=== PATIENT | male | born 1940 | race Caucasian/White ===

== ENCOUNTER 2017-02-03 06:07 | Inpatient (IN) | payer MEDICARE, OTHER ==
[~2017-02-03 06:07] MED LIST: ALLEGRA180 MG PO; ALTACE10 M4 PO; AMLODIPINE BESYLATE; CALCIUM 600 +1 EAC2 PO; CALCIUM OYSTER500 MG PO; CALCIUM600 MG; CALCIUM600 MG PO; CARBAMAZEPINE200 MG PO; COLACE100 MG PO; Calcium PO; FELDENE10 MG PO; FELDENE20 MG PO; FENOFIBRATE PO; FENOFIBRATE160 MG PO; FENTANYL1 EAC5 TOP; FENTANYL1 PATCH .; FENTANYL1 PATCH TOP; FEXOFENADINE H180 MG PO; FISH OIL 1,2001 EAC5 PO; FLOMAX0.4 M1 PO; IRON PO; IRON1 TA1; IRON325 MG PO; LEVITRA20 MG PO; LOVENOX40 MG/0.4 SQ; MELOXICAM; MIRALAX17 GM PO; NICODERM14 MG/PAT1 TD; NORCO 5/325 TAB1 TAB PO; NORVASC5 MG PO; OXYCONTIN; OXYGEN; PERCOCET 5MG/AP1 TAB PO; PIROXICAM20 MG; SENOKOT-S TABLE1 TAB PO; TEGRETOL200 MG PO; TESTOSTERO200 MG/1 M IM; TESTOSTERON100 MG/ML IM; TOVIAZ4 MG PO; TRIGLIDE160 MG PO; TYLENOL325 MG PO; VITAMIN C PO; VITAMIN D 22000 UNIT PO; VITAMIN D1000 UNI1 PO; Vitamin D3 PO; XARELTO10 MG PO; ZETIA10 MG; ZETIA10 MG PO; ZYRTEC10 M3 PO
[2017-02-03 06:37] LABS: ABG CO2 ARTERIAL 29 mmol/L (21-27); ARTERIAL BLD GAS O2 SATURATION 84 % (95-98); ARTERIAL BLOOD GAS PCO2 42 mmHg (32-45); ARTERIAL PO2 51 mmHg (70-100); BICARBONATE 28 mmol/L (21-28); BLOOD GAS BASE EXCESS 4 mM/L (-/+3); PH 7.44 Units (7.35-7.45)
[2017-02-03] MEDS ORDERED: VITAMIN B-121000 MC1 PO (06:56)
[2017-02-03 07:03] LABS: BASO % 0.1 % (0-2); EOS % 0.4 % (0-7); HCT-HEMATOCRIT 38.7 % (36.0-53.5); HGB-HEMOGLOBIN 12.4 gm/dl (13.5-17.0); IMMATURE GRANULOCYTES ABSOLUTE 0.01 tho/cmm (0-0.03); IMMATURE GRANULOCYTES PERCENT 0.1 % (0-0.3); LYMPH % 6.3 % (20-45); LYMPH ABSOLUTE COUNT 0.5 tho/cmm (0.8-4.5); MCH (MEAN CORPUSCULAR HGB) 30.5 pg (28.0-32.0); MCV (MEAN CELL VOLUME) 95.1 fl (82.0-96.0); MEAN PLATELET VOLUME 10.2 cmc (9.4-12.4); MONO % 11.2 % (0-12); MONOCYTE ABSOLUTE COUNT 0.9 tho/cmm (0.0-1.2); NEUTROPHIL ABSOLUTE COUNT 6.9 tho/cmm (1.6-8.0); NEUTROPHIL-AUTOMATED 6.9 tho/cmm (1.6-8.0); NEUTROPHILS % 81.9 % (40-80); PLATELET COUNT 215 tho/cmm (150-450); RED BLOOD COUNT 4.07 mil/cmm (4.40-5.70); RED CELL DISTRIBUTION WIDTH 14.4 % (12.4-16.4); WHITE BLOOD COUNT 8.4 tho/cmm (4.0-10.0)
[2017-02-03 07:18] LABS: ALB/GLOB RATIO 0.7 (0.8-2.0); ALBUMIN 3.4 g/dl (3.5-5.0); ALKALINE PHOSPHATASE 31 U/L (33-138); ALT/SGPT 48 U/L (12-78); ANION GAP 14 mmol/L (0-20); AST/SGOT 69 U/L (10-40); BILIRUBIN,TOTAL 0.8 mg/dl (0.0-1.5); BLOOD UREA NITROGEN 34 mg/dl (6-24); CALCIUM 9.5 mg/dl (8.5-10.5); CARBON DIOXIDE-VENOUS 30 mmol/L (22-32); CHLORIDE 102 mmol/l (96-110); CREATININE 2.25 mg/dl (0.60-1.30); GLUCOSE 100 mg/dL (70-110); MAGNESIUM 1.8 mg/dl (1.8-2.6); POTASSIUM 4.5 mmol/L (3.7-5.1); SODIUM 141 mmol/L (135-145); eGFR VALUE FOR BLACK 32 mL/Min
[2017-02-03] MEDS ORDERED: METROCREAM TOP (07:26)
[2017-02-03] MEDS ORDERED: VITAMIN B3 PO (07:27)
[2017-02-03] MEDS ORDERED: ASPIRIN81 M1 PO (07:28)
[2017-02-03] MEDS ORDERED: CLARITIN10 M6 PO (07:28)
[2017-02-03] MEDS ORDERED: MIRALAX17 G2 PO (07:29)
[2017-02-03] MEDS ORDERED: PROBIOTIC1 EA10 PO (07:49)
[2017-02-03 08:05] LABS: TSH-THYROID STIMULATING HORM. 3.14 uIU/ml (0.40-3.80)
[2017-02-03 08:35] LABS: CREATINE PHOSPHOKINASE (CPK) 649 U/L (35-232)
[2017-02-03 08:36] LABS: CKMB 13.5 ng/ml (<3.6)
[2017-02-03 11:34] LABS: CHOLESTEROL 134 mg/dl (120-200); HDL CHOLESTEROL 39 mg/dl (40-60); LDL CHOLESTEROL 84 mg/dl (0-99); TRIGLYCERIDES 59 mg/dl (<149); VLDL 12 mg/dl (0-30)
[2017-02-04 05:43] LABS: ANION GAP 11 mmol/L (0-20); CALCIUM 8.8 mg/dl (8.5-10.5); CARBON DIOXIDE-VENOUS 34 mmol/L (22-32); CHLORIDE 100 mmol/l (96-110); GLUCOSE 129 mg/dL (70-110); POTASSIUM 4.4 mmol/L (3.7-5.1); SODIUM 141 mmol/L (135-145); eGFR VALUE FOR BLACK 21 mL/Min
[2017-02-04 06:03] LABS: BLOOD UREA NITROGEN 55 mg/dl (6-24); CREATININE 3.18 mg/dl (0.60-1.30)
[2017-02-04 12:28] LABS: URINE BILIRUBIN NEGATIVE (NEG); URINE BLOOD NEGATIVE (NEG); URINE GLUCOSE (UA) NEGATIVE (NEG); URINE KETONE NEGATIVE (NEG); URINE LEUKOCYTE ESTERASE NEGATIVE (NEG); URINE NITRITE NEGATIVE (NEG); URINE PROTEIN MODERATE (NEG)
[2017-02-04 12:29] LABS: URINE APPEARANCE CLEAR; URINE COLOR COLORLESS
[2017-02-04 12:34] LABS: URINE EPITHELIAL CELLS 0 /[HPF] (0-10); URINE RBC 0 /[HPF] (0-5); URINE WBC 0 /[HPF] (0-5)
[2017-02-04 13:12] LABS: URINE TOTAL PROTEIN-RANDOM 28.9 mg/dl (<11.8)
[2017-02-04 13:29] LABS: URINE PRT/CR RATIO 1.25 Ratio (0.0-0.20)
[2017-02-05 05:54] LABS: EOS % 0.4 % (0-7); HCT-HEMATOCRIT 36.2 % (36.0-53.5); HGB-HEMOGLOBIN 11.6 gm/dl (13.5-17.0); IMMATURE GRANULOCYTES ABSOLUTE 0.01 tho/cmm (0-0.03); IMMATURE GRANULOCYTES PERCENT 0.1 % (0-0.3); LYMPH % 4.7 % (20-45); LYMPH ABSOLUTE COUNT 0.4 tho/cmm (0.8-4.5); MCH (MEAN CORPUSCULAR HGB) 30.4 pg (28.0-32.0); MEAN PLATELET VOLUME 10.4 cmc (9.4-12.4); MONO % 10.5 % (0-12); MONOCYTE ABSOLUTE COUNT 0.8 tho/cmm (0.0-1.2); NEUTROPHIL ABSOLUTE COUNT 6.7 tho/cmm (1.6-8.0); NEUTROPHIL-AUTOMATED 6.7 tho/cmm (1.6-8.0); NEUTROPHILS % 84.3 % (40-80); PLATELET COUNT 161 tho/cmm (150-450); RED BLOOD COUNT 3.81 mil/cmm (4.40-5.70); RED CELL DISTRIBUTION WIDTH 14.5 % (12.4-16.4); WHITE BLOOD COUNT 7.9 tho/cmm (4.0-10.0)
[2017-02-05 06:09] LABS: ANION GAP 11 mmol/L (0-20); BLOOD UREA NITROGEN 56 mg/dl (6-24); CALCIUM 8.6 mg/dl (8.5-10.5); CARBON DIOXIDE-VENOUS 34 mmol/L (22-32); CHLORIDE 98 mmol/l (96-110); CREATININE 3.05 mg/dl (0.60-1.30); GLUCOSE 101 mg/dL (70-110); PHOSPHOROUS 3.6 mg/dl (2.5-4.9); POTASSIUM 4.2 mmol/L (3.7-5.1); SODIUM 139 mmol/L (135-145); eGFR VALUE FOR BLACK 22 mL/Min
[2017-02-06 05:58] LABS: ALBUMIN 2.5 g/dl (3.5-5.0); ANION GAP 7 mmol/L (0-20); BLOOD UREA NITROGEN 55 mg/dl (6-24); CALCIUM 8.3 mg/dl (8.5-10.5); CARBON DIOXIDE-VENOUS 36 mmol/L (22-32); CHLORIDE 100 mmol/l (96-110); CREATININE 2.73 mg/dl (0.60-1.30); GLUCOSE 96 mg/dL (70-110); PHOSPHOROUS 3.7 mg/dl (2.5-4.9); POTASSIUM 4.5 mmol/L (3.7-5.1); SODIUM 138 mmol/L (135-145); eGFR VALUE FOR BLACK 25 mL/Min
[2017-02-06] MEDS ORDERED: ELIQUIS2.5 M1 PO (11:13)
[2017-02-06] MEDS ORDERED: PACERONE200 M1 PO (11:14)
[2017-02-06] MEDS ORDERED: NORVASC5 M2 PO (11:16)
[2017-02-06] MEDS ORDERED: COREG3.125 M1 PO (11:18)
== END 2017-02-06 15:30 | DRG 308 ==
LOC: EDMED 06:07 → EMR2 08:28 → PCUB 14:27
PROVIDERS: Emergency Medicine; Internal Medicine Nephrology; ADMIT Internal Medicine Cardiovascular Disease
DX: I48.91 Unspecified atrial fibrillation (principal); J96.91 Respiratory failure, unspecified with hypoxia; N17.9 Acute kidney failure, unspecified; N18.4 Chronic kidney disease, stage 4 (severe); I45.10 Unspecified right bundle-branch block; I12.9 Hypertensive chronic kidney disease with stage 1 through stage 4 chronic kidney disease, or unspecified chronic kidney disease; R00.1 Bradycardia, unspecified; M19.90 Unspecified osteoarthritis, unspecified site; I35.0 Nonrheumatic aortic (valve) stenosis; J44.9 Chronic obstructive pulmonary disease, unspecified; R79.89 Other specified abnormal findings of blood chemistry; F17.290 Nicotine dependence, other tobacco product, uncomplicated; Z79.82 Long term (current) use of aspirin; Z96.653 Presence of artificial knee joint, bilateral; Z86.73 Personal history of transient ischemic attack (TIA), and cerebral infarction without residual deficits; Z87.442 Personal history of urinary calculi
CPT/HCPCS: J0282; J1650; J1940